=== PATIENT | female | born 1960 | race Caucasian/White ===

== ENCOUNTER → 2019-01-26 14:39 | Outpatient (CLI) | payer OTHER, SELFPAY ==
[2019-01-26 15:16] LABS: Add Manual Diff / Slide Review NO; Basophils Absolute Auto 100 /uL (0-100); Basophils Percent Auto 1.1 % (0-2); Eosinophils Absolute Auto 100 /uL (0-450); Eosinophils Percent Auto 1.2 % (2-4); Hematocrit 41.8 % (36-46); Hemoglobin 14.1 g/dL (12.0-16.0); Lymphocytes Absolute Auto 1700 /uL (1100-4500); Lymphocytes Percent Auto 28.3 % (25-40); Mean Corpuscular HGB Conc 33.8 % (30-36); Mean Corpuscular Hemoglobin 28.6 PG (26-34); Mean Corpuscular Volume 84.5 fL (80-100); Monocytes Absolute Auto 400 /uL (0-900); Monocytes Percent Auto 7.2 % (3-14); Neutrophils Absolute Auto 3800 /uL (1500-7000); Neutrophils Percent Auto 62.2 % (50-75); Platelet Count 402 X10^3/uL (150-400); Red Blood Cell Count 4.94 X10^6/uL (4.0-5.2); Red Cell Distribution Width 13.6 % (11.6-14.8); White Blood Cell Count 6.1 X10^3/uL (4.5-11.0)
[2019-01-26 16:08] LABS: Alanine Aminotransferase 21 IU/L (9-52); Albumin 4.5 g/dL (3.5-5.0); Albumin Globulin Ratio 1.5 (1.0-2.8); Alkaline Phosphatase 64 U/L (38-126); Aspartate Aminotransferase 20 IU/L (14-36); BUN Creatinine Ratio 18.3 (6-22); Bilirubin Total 0.5 mg/dL (0.2-1.3); Blood Urea Nitrogen 11 mg/dL (7-17); Calcium 9.8 mg/dL (8.4-10.2); Carbon Dioxide 28 mmol/L (22-32); Chloride 103 mmol/L (98-107); Cholesterol 244 mg/dL (140-199); Estimated Glomerular Filt Rate > 60.0 mL/min (>60); Glucose 94 mg/dL (70-100); HDL Cholesterol 100 mg/dL (40-60); HEMOLYSIS < 15 (0-50); LDL Cholesterol Calculated 117 mg/dL (<100); Magnesium 1.9 mg/dL (1.6-2.3); Sodium 139 mmol/L (137-145); Total Protein 7.5 g/dL (6.3-8.2); Triglycerides 137 mg/dL (35-150)
[2019-01-26 16:35] LABS: Thyroid Stimulating Hormone 2.35 uIU/mL (0.47-4.68)
[2019-01-26 16:37] LABS: Estradiol, Total 57.9 pg/mL
== END ==
PROVIDERS: PCP Acupuncturist; Visit Provider Acupuncturist
DX: Z00.00 Encounter for general adult medical examination without abnormal findings (principal)
CPT/HCPCS: 36415; 80053; 80061; 82670; 83735; 84443; 85025

== ENCOUNTER → 2020-09-07 07:49 | Outpatient (CLI) | payer OTHER, SELFPAY ==
[2020-09-07 08:43] LABS: Add Manual Diff / Slide Review NO; Basophils Absolute Auto 100 /uL (0-100); Eosinophils Absolute Auto 100 /uL (0-450); Hemoglobin 13.5 g/dL (12.0-16.0); Lymphocytes Absolute Auto 1500 /uL (1100-4500); Lymphocytes Percent Auto 29.6 % (25-40); Mean Corpuscular HGB Conc 33.9 % (30-36); Mean Corpuscular Hemoglobin 28.7 PG (26-34); Mean Corpuscular Volume 84.6 fL (80-100); Monocytes Absolute Auto 400 /uL (0-900); Monocytes Percent Auto 7.7 % (3-14); Neutrophils Absolute Auto 3100 /uL (1500-7000); Neutrophils Percent Auto 60.7 % (50-75); Platelet Count 422 X10^3/uL (150-400); Red Blood Cell Count 4.73 X10^6/uL (4.0-5.2); Red Cell Distribution Width 13.3 % (11.6-14.8); White Blood Cell Count 5.1 X10^3/uL (4.5-11.0)
[2020-09-07 09:27] LABS: Alanine Aminotransferase 29 IU/L (<35); Albumin 4.6 g/dL (3.5-5.0); Albumin Globulin Ratio 1.6 (1.0-2.8); Alkaline Phosphatase 62 U/L (38-126); Aspartate Aminotransferase 25 IU/L (14-36); Bilirubin Total 0.5 mg/dL (0.2-1.3); Blood Urea Nitrogen 14 mg/dL (7-17); Calcium 9.9 mg/dL (8.4-10.2); Carbon Dioxide 26 mmol/L (22-32); Chloride 101 mmol/L (98-107); Cholesterol 230 mg/dL (140-199); Estimated Glomerular Filt Rate > 60.0 mL/min (>60); Globulin 2.9 g/dL (1.7-4.1); Glucose 105 mg/dL (70-100); HDL Cholesterol 107 mg/dL (40-60); HEMOLYSIS < 15 (0-50); LDL Cholesterol Calculated 102 mg/dL (<100); Sodium 136 mmol/L (137-145); Total Protein 7.5 g/dL (6.3-8.2); Triglycerides 105 mg/dL (35-150)
[2020-09-07 09:40] LABS: Free T3, Triiodothyronine Free 3.87 pg/mL (2.77-5.27)
[2020-09-07 09:54] LABS: Thyroid Stimulating Hormone 4.01 uIU/mL (0.47-4.68)
[2020-09-07 10:00] LABS: Ferritin 100 ng/mL (11-264)
== END ==
PROVIDERS: PCP Acupuncturist; Referring Provider Acupuncturist; Visit Provider Acupuncturist
DX: Z00.00 Encounter for general adult medical examination without abnormal findings (principal)
CPT/HCPCS: 36415; 80053; 80061; 82728; 84443; 84481; 85025

== ENCOUNTER → 2020-11-17 07:04 | Outpatient (CLI) | payer OTHER, SELFPAY ==
[2020-11-17 08:46] LABS: Thyroid Stimulating Hormone 3.88 uIU/mL (0.47-4.68)
[2020-11-17 09:03] LABS: Folate 10.1 ng/mL (2.76-20.0); Vitamin B12 373 pg/mL (239-931)
== END ==
PROVIDERS: PCP Acupuncturist; Referring Provider Acupuncturist; Visit Provider Acupuncturist
DX: E03.9 Hypothyroidism, unspecified (principal)
CPT/HCPCS: 36415; 82607; 82746; 84443

== ENCOUNTER 2020-12-27 15:39 | Emergency (ER) | payer OTHER, SELFPAY ==
[2020-12-27 15:42] VITALS: BP 185/100; PULSE 95; RESP 20; TEMP 36.8; O2SAT 96
[2020-12-27 16:21] LABS: Add Manual Diff / Slide Review NO; Basophils Absolute Auto 100 /uL (0-100); Eosinophils Absolute Auto 100 /uL (0-450); Hematocrit 41.9 % (36-46); Hemoglobin 14.2 g/dL (12.0-16.0); Lymphocytes Absolute Auto 1600 /uL (1100-4500); Lymphocytes Percent Auto 22.3 % (25-40); Mean Corpuscular HGB Conc 33.9 % (30-36); Mean Corpuscular Hemoglobin 28.7 PG (26-34); Mean Corpuscular Volume 84.6 fL (80-100); Monocytes Absolute Auto 500 /uL (0-900); Monocytes Percent Auto 7.2 % (3-14); Neutrophils Absolute Auto 5000 /uL (1500-7000); Neutrophils Percent Auto 68.5 % (50-75); Platelet Count 421 X10^3/uL (150-400); Red Blood Cell Count 4.95 X10^6/uL (4.0-5.2); Red Cell Distribution Width 13.5 % (11.6-14.8); White Blood Cell Count 7.3 X10^3/uL (4.5-11.0)
[2020-12-27 16:33] LABS: Alanine Aminotransferase 23 IU/L (<35); Albumin 4.7 g/dL (3.5-5.0); Albumin Globulin Ratio 1.5 (1.0-2.8); Alkaline Phosphatase 73 U/L (38-126); Aspartate Aminotransferase 29 IU/L (14-36); Bilirubin Total 0.5 mg/dL (0.2-1.3); Blood Urea Nitrogen 14 mg/dL (7-17); Calcium 9.8 mg/dL (8.4-10.2); Carbon Dioxide 26 mmol/L (22-32); Chloride 105 mmol/L (98-107); Estimated Glomerular Filt Rate > 60.0 mL/min (>60); Globulin 3.2 g/dL (1.7-4.1); Glucose 136 mg/dL (80-110); HEMOLYSIS < 15 (0-50); Lipase 85 U/L (23-300); Potassium 3.5 mmol/L (3.4-5.1); Sodium 140 mmol/L (137-145); Total Protein 7.9 g/dL (6.3-8.2)
--- NOTE | 2020-12-27 17:08 | DI.CT.S_ITS ---
PROCEDURE: CT KIDNEY URETER BLADDER (KUB) INDICATIONS: LLQ and flank pain, hematuria TECHNIQUE: Axial sections were acquired from the lung bases to the pubic symphysis. Coronal and sagittal reformats were performed. For radiation dose reduction, the following was used: automated exposure control, adjustment of mA and/or kV according to patient size. COMPARISON: None. FINDINGS: Image quality: Excellent. Lung bases: Minimal bibasilar atelectasis. No pleural effusion.. Heart: No significant findings. URINARY: Right Kidney: No stones or hydronephrosis. Right Ureter: No hydroureter. Left Kidney: Calculus at the UPJ measuring 0.6 cm, (4/39). There may be trace stranding surrounding the UPJ/proximal ureter. The left renal collecting system is mildly dilated compared to the right. Inferior pole nonobstructing calculus measuring 0.2 cm. Left Ureter: No hydroureter. Bladder: Normal wall thickness. No stones. ABDOMEN: Liver: Unremarkable. Gallbladder: Multiple gallstones. No pericholecystic fluid seen. Biliary ducts: Unremarkable. Pancreas: Unremarkable. Spleen: Unremarkable. Adrenal Glands: Unremarkable. Stomach and Bowel: Stomach, small bowel loops, and colon are unremarkable. Diverticulosis. No diverticulitis. Peritoneum: No abnormal intraperitoneal fluid. No free air. Ventral Wall: Tiny fat containing periumbilical hernia. Abdominal Nodes: No enlarged retroperitoneal or mesenteric lymph nodes. Vessels: Aorta and inferior vena cava are normal in size. PELVIS: Pelvic Organs: Uterus is absent. Pelvic Nodes: Unremarkable. Miscellaneous: No inguinal hernias are seen. Bones: No compression fracture. Retrolisthesis of L5 on S1 measuring 0.6 cm. IMPRESSION: 1. Calculus at the left UPJ measuring 0.6 cm. Suspect trace fat stranding adjacent to the UPJ/proximal ureter. Left renal collecting system is mildly dilated compared to the right. This may indicate intermittent obstruction at the level of the left UPJ due to this stone. 2. No hydroureter. 3. Additional nonobstructing calculus in the left kidney. 4. Diverticulosis. 5. Cholelithiasis. Dictated by: Harrison Gutiérrez M.D. on 12/27/2020 at 17:26 Approved by: Harrison Gutiérrez M.D. on 12/27/2020 at 17:34
[2020-12-27] MEDS: ONDANSETRON 4 MG/2 ML INJ IV (17:30)
[2020-12-27] MEDS: SODIUM CHLORIDE 0.9% 1,000 ML 1000 ML IV (17:30)
[2020-12-27] MEDS: KETOROLAC 30 MG/ML VIAL 15 MG IV (17:30)
--- NOTE | 2020-12-27 17:35 | ED_ITS ---
HPI - Abdominal Pain <COLE Garcia - Last Filed: 12/27/20 20:05> General Chief Complaint: Abdominal Pain Stated Complaint: THINKS KIDNEY STONE, PAIN Time Seen by Provider: 12/27/20 16:29 Source: patient Mode of arrival: Ambulatory Limitations: no limitations History of Present Illness HPI narrative: This is a 60 year female, nonsmoker, has a remote history of kidney stone presents to ED with chief complain of intermittent duration of left flank and abdominal pain for about a month. She also noticed some swelling in her lower extremities. Patient initially noticed when she was visiting her daughter [place] and was evaluated in urgent care for UTI but urine culture was negative and there was no hematuria. Patient was advised to follow-up primary care physician when she returns to [place]. Patient does have an appointment with primary care physician Dr. Stover on 01/04/2021 but patient has been having severe pain since last night with nausea and some diarrhea. She reports could not sleep at all last night due to pain so she is here in ED for an evaluation. She was nauseated this morning and saw blood in her urine. Patient reports she was able to pass kidney stone on her own 4 years ago. Patient denies other urinary symptoms such as urgency, dysuria, or urinary frequency. Patient denies known exposure to COVID or has any COVID symptoms. She has returned to home 2-3 weeks ago. Patient denies chest pain, dyspnea. Related Data Previous Rx's Medication Instructions Recorded hydrocodone-acetaminophen 1 tab PO Q6H PRN #14 tab 12/27/20 ondansetron 4 mg PO Q6-8H PRN #7 tab 12/27/20 tamsulosin [Flomax] 0.4 mg PO BEDTIME #10 cap 12/27/20 Allergies Allergy/AdvReac Type Severity Reaction Status Date / Time No Known Drug Allergies Allergy Verified 12/27/20 15:44 Review of Systems <COLE Garcia - Last Filed: 12/27/20 20:05> Review of Systems Narrative: General: Denies fever, chills, fatigue, malaise, sweats. HEENT: Denies sinus pain, ear pain, sore throat, difficulty swallowing, dizziness. Respiratory: Denies dyspnea, cough, wheezing, hemoptysis, sputum. Cardiovascular: Denies chest pain, palpitations, orthopnea, edema. Gastrointestinal: See HPI : See HPI Musculoskeletal: Denies weakness, joint pain or bony pain. Skin: Denies rash, skin lesions, or other. Neurologic: Denies weakness, headache, numbness, change in speech, confusion, seizures, incoordination. Psychiatric: No concerning psychosocial issues. 12-point review of systems is negative except for those stated above. Patient History <COLE Garcia - Last Filed: 12/27/20 20:05> Medical History (Updated 12/27/20 @ 18:29 by COLE Garcia) Fibroids Kidney stone Social History Smoking Status: Never smoker Smoking Status: Never smoker alcohol intake frequency: 0-2 drinks per day Substance Use Type: does not use Exam <COLE Garcia - Last Filed: 12/27/20 20:05> Narrative Exam Narrative: GEN: Alert, oriented x 3, well appearing and nourished, and in no acute distress. Head: Normal cephalic, atraumatic. No scalp or temporal tenderness, palpable mass or rash. EYES: Pupils are equal, round, and reactive to light and accommodation. Extraocular muscles are intact bilaterally. There is no subconjunctival hemorrhage, exudate and sclera non-icteric. ENT: Hearing grossly intact. Nose without bleeding, purulent discharge or deviation. Mucous membrane moist, no mucosal lesion. Throat without erythema, tonsillar hypertrophy or exudate. Uvula in midline, airway patent. Neck: Trachea in midline. No JVD, non-tender without lymphadenopathy. No masses or thyroid megaly. Supple, non-tender and no meningeal signs. CARDIAC: Normal regular rate and rhythm without murmurs, gallops, or rubs. No chest wall tenderness. No peripheral edema, cyanosis or pallor. Capillary refill is less than 2 seconds. RESPIRATORY: Lungs are clear to auscultate bilaterally. No cough, wheezes, rales, or rhonchi. No stridor, respiratory distress, increase work of breathing, or accessary muscle used. ABD: Abdomen soft, nontender and non-distended. No guarding or rebound tenderness to palpate. Bowel sounds are normal in all 4 quadrants. There is no palpable masses or organomegaly. EXT: Full painless ROM of all extremities with no loss of sensation, strength, effusion or edema. SKIN: Warm, dry, normal color for patient. No erythema, lesions or rash over visible areas. BACK: Nontender without deformity or crepitance. No flank tenderness. NEUROLOGICAL: Alert and oriented to place, time and person. Sensation and motor function intact bilaterally. No facial droops, dysphasia. PSYCHIATRIC: Good judgement and reason, without hallucinations, abnormal affect or abnormal behaviors during the examination. Patient is not suicidal. Initial Vital Signs Initial Vital Signs: Vital Signs Temperature 98.2 F 12/27/20 15:42 Pulse Rate 95 H 12/27/20 15:42 Respiratory Rate 20 12/27/20 15:42 Blood Pressure 185/100 H 12/27/20 15:42 Pulse Oximetry 96 12/27/20 15:42 <Sabiha Lemus DO - Last Filed: 12/28/20 18:19> Initial Vital Signs Initial Vital Signs: Vital Signs Temperature 98.2 F 12/27/20 15:42 Pulse Rate 95 H 12/27/20 15:42 Respiratory Rate 20 12/27/20 15:42 Blood Pressure 185/100 H 12/27/20 15:42 Pulse Oximetry 96 12/27/20 15:42 Scores <COLE Garcia - Last Filed: 12/27/20 20:05> GCS [place] coma scale eye opening: Spontaneous Matti coma scale verbal response: Orientated [place] coma scale motor response: Obey commands Matti coma scale total score: 15 Course <COLE Garcia - Last Filed: 12/27/20 20:05> Orders Ordered: Discontinued Medications Sodium Chloride (Normal Saline 0.9%) 1,000 mls @ 1,000 mls/hr IV BOLUS PRN PRN Reason: Fluid replacement Last Admin: 12/27/20 17:30 Dose: 1,000 mls/hr Documented by: TAYE Ketorolac Tromethamine (Ketorolac 30 Mg/Ml Vial) 15 mg IV NOW ONE Stop: 12/27/20 17:09 Last Admin: 12/27/20 17:30 Dose: 15 mg Documented by: TAYE Ondansetron HCl (Ondansetron 4 Mg/2 Ml Inj) 4 mg IV NOW ONE Stop: 12/27/20 17:09 Last Admin: 12/27/20 17:30 Dose: 4 mg Documented by: TAYE Sodium Chloride (Sodium Chloride 0.9% 100 Ml) 250 ml IV NOW ONE Stop: 12/27/20 17:09 Last Admin: 12/27/20 17:45 Dose: Not Given Documented by: TAYE Vital Signs Vital signs: Vital Signs - 8 hr 12/27/20 15:42 Temperature 98.2 F Pulse Rate 95 H Respiratory Rate 20 Blood Pressure 185/100 H Pulse Oximetry 96 <Sabiha Lemus DO - Last Filed: 12/28/20 18:19> Orders Ordered: Discontinued Medications Sodium Chloride (Normal Saline 0.9%) 1,000 mls @ 1,000 mls/hr IV BOLUS PRN PRN Reason: Fluid replacement Last Admin: 12/27/20 17:30 Dose: 1,000 mls/hr Documented by: TAYE Ketorolac Tromethamine (Ketorolac 30 Mg/Ml Vial) 15 mg IV NOW ONE Stop: 12/27/20 17:09 Last Admin: 12/27/20 17:30 Dose: 15 mg Documented by: TAYE Ondansetron HCl (Ondansetron 4 Mg/2 Ml Inj) 4 mg IV NOW ONE Stop: 12/27/20 17:09 Last Admin: 12/27/20 17:30 Dose: 4 mg Documented by: TAYE Sodium Chloride (Sodium Chloride 0.9% 100 Ml) 250 ml IV NOW ONE Stop: 12/27/20 17:09 Last Admin: 12/27/20 17:45 Dose: Not Given Documented by: TAYE Vital Signs Vital signs: Vital Signs - 8 hr 12/27/20 15:42 Temperature 98.2 F Pulse Rate 95 H Respiratory Rate 20 Blood Pressure 185/100 H Pulse Oximetry 96 MDM - Abdominal Pain <COLE Garcia - Last Filed: 12/27/20 20:05> Differential Diagnosis Differential diagnosis: Likely abdominal pain, calculus of kidney, di verticulitis and small bowel obstruction Medical Records Attestation: I reviewed the patient's medical records. Lab Data Attestation: I reviewed the patient's lab results. Result diagrams: 12/27/20 16:06 12/27/20 16:06 Labs: Lab Results 12/27/20 12/27/20 12/27/20 Range/Units 16:06 16:06 16:07 WBC 7.3 (4.5-11.0) X10^3/uL RBC 4.95 (4.0-5.2) X10^6/uL Hgb 14.2 (12.0-16.0) g/dL Hct 41.9 (36-46) % MCV 84.6 (80-100) fL MCH 28.7 (26-34) PG MCHC 33.9 (30-36) % RDW 13.5 (11.6-14.8) % Plt Count 421 H (150-400) X10^3/uL Neut % (Auto) 68.5 (50-75) % Lymph % (Auto) 22.3 L (25-40) % [place] % (Auto) 7.2 (3-14) % Eos % (Auto) 1.0 L (2-4) % Baso % (Auto) 1.0 (0-2) % Neut # (Auto) 5000 (7741-0859) /uL Lymph # (Auto) 1600 (4141-0315) /uL [place] # (Auto) 500 (0-900) /uL Eos # (Auto) 100 (0-450) /uL Baso # (Auto) 100 (0-100) /uL Sodium 140 (137-145) mmol/L Potassium 3.5 (3.4-5.1) mmol/L Chloride 105 (98-107) mmol/L Carbon Dioxide 26 (22-32) mmol/L BUN 14 (7-17) mg/dL Creatinine 0.56 (0.52-1.04) mg/dL Estimated GFR > 60.0 (>60) mL/min BUN/Creatinine Ratio 25.0 H (6-22) Glucose 136 H (80-110) mg/dL Calcium 9.8 (8.4-10.2) mg/dL Total Bilirubin 0.5 (0.2-1.3) mg/dL AST 29 (14-36) IU/L ALT 23 (<35) IU/L Alkaline Phosphatase 73 (38-126) U/L Total Protein 7.9 (6.3-8.2) g/dL Albumin 4.7 (3.5-5.0) g/dL Globulin 3.2 (1.7-4.1) g/dL Albumin/Globulin Ratio 1.5 (1.0-2.8) Lipase 85 (23-300) U/L Urine RBC >100/hpf H (0-5/HPF) Urine WBC None seen (0-5/HPF) Ur Squamous Epith Cells None seen (0-5/HPF) Urine Bacteria None seen (None) Ur Culture Indicated? Specimen cultured Point of care testing: Urine Dip Bedside Urine Glucose Negative Bedside Urine Bilirubin - Negative Bedside Urine Ketone - Negative Urine Specific [place] 1.030 Bedside Urine Occult Blood +++ Bedside Urine pH 6 Bedside Urine Protein + 30 Bedside Urine Urobilinogen - Negative Bedside Urine Nitrite - Negative Bedside Urine Leukocytes + [address]-KUB: Radiologist's Impression: [address] [id number] Scan ReportSigned Patient: Carmen Flynn JMR#: [id number]: 1Acct:[id number]/Sex: 60 / FDate of Service: 12/27/20Loc: EDAccession Number: [id number] Procedure: CT kidney ureter bladder (KUB) Ordering Provider: Rob Palacios PROCEDURE: CT KIDNEY URETER BLADDER (KUB) INDICATIONS: LLQ and flank pain, hematuria TECHNIQUE: Axial sections were acquired from the lung bases to the pubic symphysis. Coronal and sagittal reformats were performed. For radiation dose reduction, the following was used: automated exposure control, adjustment of mA and/or kV according to patient size. COMPARISON: None. FINDINGS: Image quality: Excellent. Lung bases: Minimal bibasilar atelectasis. No pleural effusion.. Heart: No significant findings. URINARY: Right Kidney: No stones or hydronephrosis. Right Ureter: No hydroureter. Left Kidney: Calculus at the UPJ measuring 0.6 cm, (4/39). There may be trace stranding surrounding the UPJ/proximal ureter. The left renal collecting system is mildly dilated compared to the right. Inferior pole nonobstructing calculus measuring 0.2 cm. Left Ureter: No hydroureter. Bladder: Normal wall thickness. No stones. ABDOMEN: Liver: Unremarkable. Gallbladder: Multiple gallstones. No pericholecystic fluid seen. Biliary ducts: Unremarkable. Pancreas: Unremarkable. Spleen: Unremarkable. Adrenal Glands: Unremarkable. Stomach and Bowel: Stomach, small bowel loops, and colon are unremarkable. Diverticulosis. No diverticulitis. Peritoneum: No abnormal intraperitoneal fluid. No free air. Ventral Wall: Tiny fat containing periumbilical hernia. Abdominal Nodes: No enlarged retroperitoneal or mesenteric lymph nodes. Vessels: Aorta and inferior vena cava are normal in size. PELVIS: Pelvic Organs: Uterus is absent. Pelvic Nodes: Unremarkable. Miscellaneous: No inguinal hernias are seen. Bones: No compression fracture. Retrolisthesis of L5 on S1 measuring 0.6 cm. IMPRESSION: 1. Calculus at the left UPJ measuring 0.6 cm. Suspect trace fat stranding adjacent to the UPJ/proximal ureter. Left renal collecting system is mildly dilated compared to the right. This may indicate intermittent obstruction at the level of the left UPJ due to this stone. 2. No hydroureter. 3. Additional nonobstructing calculus in the left kidney. 4. Diverticulosis. 5. Cholelithiasis. Dictated by: Harrison Gutiérrez M.D. on 12/27/2020 at 17:26 Approved by: Harrison Gutiérrez M.D. on 12/27/2020 at 17:34 [facility] Narrative Medical decision making narrative: This is a 60-year-old female who presents to ED with intermittent discomfort in left flank and left abdomen for a month. Patient was also concern for bilateral leg swelling after she traveled to and back from [place] driving. Patient denies chest pain, short of breath, or calf pain, redness, warmth to lower extremities. Urine test shows +++ blood and +70 Leuks. Micro urine test results show no WBC or bacteria and culture is pending. Patient denies constitutional symptoms and she is afebrile in ED. WBC shows no leukocytosis. Increased BUN/creatinine ratio but normal GFR and creatinine level indicating normal kidney function. Patient's physical exam is not consistent with DVT. Bilateral lower leg swelling likely due to pendant edema. No cardiac related symptoms with lower leg swelling. Patient had once kidney stone 4 years ago which she was able to pass without surgical interventions. KUB CT test was done to evaluate obstructive kidney stone. CT test indicates 0.6 cm stone in UPJ with trace stranding surrounding UPJ/proximal ureter. There is another small stone measuring 0.2 cm in left inferior pole non obstructing. Patient found to be with pain treatment from Toradol, Zofran and IVF. Patient is discharged to home with Flomax, [place] and Zofran advised to use [id number] Tylenol and or Motrin as needed for bases pain management. Patient advised to follow-up with Dr. Granda and strict return precautions discussed. Patient verbalized understanding and agreement with the treatment plan. <Sabiha Lemus, DO - Last Filed: 12/28/20 18:19> Lab Data Labs: Lab Results 12/27/20 12/27/20 12/27/20 Range/Units 16:06 16:06 16:07 WBC 7.3 (4.5-11.0) X10^3/uL RBC 4.95 (4.0-5.2) X10^6/uL Hgb 14.2 (12.0-16.0) g/dL Hct 41.9 (36-46) % MCV 84.6 (80-100) fL MCH 28.7 (26-34) PG MCHC 33.9 (30-36) % RDW 13.5 (11.6-14.8) % Plt Count 421 H (150-400) X10^3/uL Neut % (Auto) 68.5 (50-75) % Lymph % (Auto) 22.3 L (25-40) % [place] % (Auto) 7.2 (3-14) % Eos % (Auto) 1.0 L (2-4) % Baso % (Auto) 1.0 (0-2) % Neut # (Auto) 5000 (4571-9562) /uL Lymph # (Auto) 1600 (4518-2363) /uL [place] # (Auto) 500 (0-900) /uL Eos # (Auto) 100 (0-450) /uL Baso # (Auto) 100 (0-100) /uL Sodium 140 (137-145) mmol/L Potassium 3.5 (3.4-5.1) mmol/L Chloride 105 (98-107) mmol/L Carbon Dioxide 26 (22-32) mmol/L BUN 14 (7-17) mg/dL Creatinine 0.56 (0.52-1.04) mg/dL Estimated GFR > 60.0 (>60) mL/min BUN/Creatinine Ratio 25.0 H (6-22) Glucose 136 H (80-110) mg/dL Calcium 9.8 (8.4-10.2) mg/dL Total Bilirubin 0.5 (0.2-1.3) mg/dL AST 29 (14-36) IU/L ALT 23 (<35) IU/L Alkaline Phosphatase 73 (38-126) U/L Total Protein 7.9 (6.3-8.2) g/dL Albumin 4.7 (3.5-5.0) g/dL Globulin 3.2 (1.7-4.1) g/dL Albumin/Globulin Ratio 1.5 (1.0-2.8) Lipase 85 (23-300) U/L Urine RBC >100/hpf H (0-5/HPF) Urine WBC None seen (0-5/HPF) Ur Squamous Epith Cells None seen (0-5/HPF) Urine Bacteria None seen (None) Ur Culture Indicated? Specimen cultured Point of care testing: Urine Dip Bedside Urine Glucose Negative Bedside Urine Bilirubin - Negative Bedside Urine Ketone - Negative Urine Specific [place] 1.030 Bedside Urine Occult Blood +++ Bedside Urine pH 6 Bedside Urine Protein + 30 Bedside Urine Urobilinogen - Negative Bedside Urine Nitrite - Negative Bedside Urine Leukocytes + 70 Esterase Discharge Plan Departure Patient Disposition: Home Clinical Impression: Left ureteral calculus Instructions: DI for Kidney Stones Activity Restrictions/Additional Instructions: You have been diagnosed with [ureter stone on left side. One stone measuring 6 mm at the UVJ and 2mm stone in inferior pole non-obstructing. ]. What to do: *Take your medications as directed. Please start Flomax tonight and daily thereafter. You can use Zofran as needed for nausea or vomiting. Take OTC Motrin and Tylenol as needed for pain and for severe pain, take [place]. [place] is narcotic pain medications any can cause drowsiness please do not drive, drink alcohol, or operate heavy equipments. Ibuprofen 600 mg to 3 times a day as needed. Tylenol 650mg up to 3 times a day as needed for pain. This medication have been transmitted to [facility] in [facility]. *Follow up with your primary care provider/urologist Dr. Granda in 2-3 days, call for an appointment. Let them know you were seen in the ED and that we asked you to be seen in follow up. Urine culture is pending to evaluate the infection. Incidental findings of diverticulosis and cholelithiasis (gallstones without infection). *Return to ED if you have any new, worsening, or concerning symptoms, such as [worsening pain, fever, unable to tolerate fluids, chest pain, breathing difficulty, unable to void, or any acute concerns]. Prescriptions: New hydrocodone-acetaminophen 5-325 mg tablet 1 tab PO Q6H PRN (Reason: pain) Qty: 14 RF: 0 ondansetron 4 mg tablet,disintegrating 4 mg PO Q6-8H PRN (Reason: nausea and vomiting) Qty: 7 RF: 0 tamsulosin [Flomax] 0.4 mg capsule 0.4 mg PO BEDTIME Qty: 10 RF: 0 Referrals: Jd Granda MD [Physician] - Laila López ND [Primary Care Provider] - <Sabiha Lemus DO - Last Filed: 12/28/20 18:19> Sign Out Provider Sign Out Attestation: I was immediately available in the department for consultation. Documentation has been reviewed. I agree with assessment and plan.
[2020-12-27 18:31] LABS: Bacteria Urine None Seen; WBC Urine None Seen (0-5/HPF)
[2020-12-27 18:43] LABS: Culture Indicated Urine Specimen Cultured; RBC Urine >100/HPF (0-5/HPF); Squamous Epithelial Cell Urine None Seen (0-5/HPF)
[2020-12-27 20:30] VITALS: BP 144/91; PULSE 79; RESP 20; O2SAT 97
--- NOTE | 2021-01-27 09:08 | PC.NURSE ---
Late Entry NS finished 1000ml @ approx 1830
== END 2020-12-27 20:30 | disposition home or self-care (01) ==
PROVIDERS: Emergency Medicine; Emergency Provider Nurse Practitioner Family; PCP Acupuncturist
DX: N20.1 Calculus of ureter (principal); R31.9 Hematuria, unspecified
CPT/HCPCS: 74176; 80053; 81003; 81015; 83690; 85025; 87086; 96361; 96374; 96375; 99284; J1885; J2405

== ENCOUNTER → 2021-01-11 15:23 | Outpatient (CLI) | payer OTHER, SELFPAY | PROVIDERS: PCP Acupuncturist; Visit Provider Urology | DX: N20.0 Calculus of kidney (principal); R82.81 Pyuria; R31.0 Gross hematuria | CPT/HCPCS: 81002; 87086 ==

== ENCOUNTER → 2021-02-23 09:02 | Outpatient (CLI) | payer OTHER, SELFPAY ==
--- NOTE | 2021-02-23 09:03 | DI.RAD.S_ITS ---
PROCEDURE: XR KUB INDICATIONS: Kidney stone TECHNIQUE: One view of the abdomen acquired. COMPARISON: [facility], CT, CT KIDNEY URETER BLADDER (KUB), 12/27/2020, 17:18. FINDINGS: Surgical changes and devices: None. Bowel: Bowel gas pattern is normal. Moderate amount of stool in colon. Soft tissues: A couple of calcified stones in the inferior pole of the left kidney measuring 5 mm and 2 mm. Visualized solid organ contours appear normal in size. Bones: No suspicious bony lesions. Degenerative disc and facet disease at L4-L5. IMPRESSION: A couple of left renal calculi. Dictated by: Aiden Kline M.D. on 02/23/2021 at 11:16 Approved by: Aiden Kline M.D. on 02/23/2021 at 11:19
== END ==
PROVIDERS: PCP Acupuncturist; Referring Provider Urology; Visit Provider Urology
DX: N20.0 Calculus of kidney (principal); N39.0 Urinary tract infection, site not specified; R31.0 Gross hematuria; Z71.89 Other specified counseling
CPT/HCPCS: 74018; 81002; 87086

== ENCOUNTER → 2021-02-23 10:03 | Outpatient (CLI) | payer OTHER, SELFPAY | PROVIDERS: PCP Acupuncturist; Visit Provider Urology | DX: N39.0 Urinary tract infection, site not specified (principal) | CPT/HCPCS: 87086 ==

== ENCOUNTER → 2021-04-18 15:38 | Outpatient (CLI) | payer OTHER, SELFPAY ==
--- NOTE | 2021-04-18 15:43 | DI.RAD.S_ITS ---
PROCEDURE: XR KUB INDICATIONS: Kidney stone TECHNIQUE: One view of the abdomen acquired. COMPARISON: [facility], , XR KUB, 02/23/2021, 9:25. FINDINGS: Surgical changes and devices: None. Bowel: Bowel gas pattern is normal. Soft tissues: Redemonstrated left nephrolithiasis. Calcifications overlie the pelvis, which may reflect phleboliths. Visualized solid organ contours appear normal in size. Bones: No suspicious bony lesions. IMPRESSION: Redemonstrated left nephrolithiasis. Dictated by: Alfred Ralph M.D. on 04/18/2021 at 17:11 Approved by: Alfred Ralph M.D. on 04/18/2021 at 17:12
== END ==
PROVIDERS: PCP Acupuncturist; Referring Provider Urology; Visit Provider Urology
DX: N20.0 Calculus of kidney (principal)
CPT/HCPCS: 74018

== ENCOUNTER → 2021-10-17 16:27 | Outpatient (CLI) | payer OTHER, SELFPAY ==
--- NOTE | 2021-10-17 16:31 | DI.RAD.S_ITS ---
PROCEDURE: XR KUB INDICATIONS: Left lower pole calculus TECHNIQUE: One view of the abdomen acquired. COMPARISON: [facility], CT, CT KIDNEY URETER BLADDER (KUB), 12/27/2020, 17:18. [facility], CR, XR KUB, 04/18/2021, 15:49. FINDINGS: Surgical changes and devices: None. Bowel: Mild amount of stool within the right and left colon; otherwise normal bowel gas pattern is normal. Soft tissues: No suspicious abdominal calcifications. Visualized solid organ contours appear normal in size. Bones: No suspicious bony lesions. IMPRESSION: Mild fecal loading. Dictated by: Vinnie Carr RRA Interpreted: Alfred Ralph MD on 10/17/2021 at 17:11 Transcribed by: JULIO on 10/17/2021 at 17:11 Approved by: Alfred Raplh M.D. on 10/26/2021 at 13:07
== END ==
PROVIDERS: PCP Acupuncturist; Referring Provider Urology; Visit Provider Urology
DX: N20.0 Calculus of kidney (principal)
CPT/HCPCS: 74018

== ENCOUNTER → 2022-01-03 12:03 | Outpatient (CLI) | payer OTHER, SELFPAY ==
[2022-01-03 12:54] LABS: Add Manual Diff / Slide Review NO; Basophils Absolute Auto 100 /uL (0-100); Basophils Percent Auto 1.3 % (0-2); Eosinophils Absolute Auto 0 /uL (0-450); Eosinophils Percent Auto 0.6 % (2-4); Hemoglobin 14.2 g/dL (12.0-16.0); Lymphocytes Absolute Auto 1500 /uL (1100-4500); Lymphocytes Percent Auto 29.6 % (25-40); Mean Corpuscular HGB Conc 34.7 % (30-36); Mean Corpuscular Hemoglobin 29.3 PG (26-34); Mean Corpuscular Volume 84.5 fL (80-100); Monocytes Absolute Auto 400 /uL (0-900); Monocytes Percent Auto 7.5 % (3-14); Neutrophils Absolute Auto 3100 /uL (1500-7000); Platelet Count 414 X10^3/uL (150-400); Red Blood Cell Count 4.85 X10^6/uL (4.0-5.2); Red Cell Distribution Width 13.3 % (11.6-14.8); White Blood Cell Count 5.2 X10^3/uL (4.5-11.0)
[2022-01-03 13:08] LABS: Alanine Aminotransferase 32 IU/L (<35); Albumin 5.1 g/dL (3.5-5.0); Albumin Globulin Ratio 1.6 (1.0-2.8); Alkaline Phosphatase 58 U/L (38-126); Aspartate Aminotransferase 28 IU/L (14-36); BUN Creatinine Ratio 16.2 (6-22); Bilirubin Total 0.6 mg/dL (0.2-1.3); Blood Urea Nitrogen 12 mg/dL (7-17); Calcium 9.8 mg/dL (8.4-10.2); Carbon Dioxide 28 mmol/L (22-32); Chloride 102 mmol/L (98-107); Cholesterol 263 mg/dL (140-199); Estimated Glomerular Filt Rate > 60 mL/min (>60); Globulin 3.2 g/dL (1.7-4.1); Glucose 98 mg/dL (80-110); HDL Cholesterol 94 mg/dL (40-60); LDL Cholesterol Calculated 148 mg/dL (<100); Potassium 3.9 mmol/L (3.4-5.1); Sodium 137 mmol/L (137-145); Total Protein 8.3 g/dL (6.3-8.2); Triglycerides 107 mg/dL (35-150)
[2022-01-03 13:09] LABS: HEMOLYSIS < 15 (0-50)
[2022-01-03 13:23] LABS: Free T3, Triiodothyronine Free 3.75 pg/mL (2.77-5.27)
[2022-01-03 13:37] LABS: Thyroid Stimulating Hormone 2.16 uIU/mL (0.47-4.68)
[2022-01-03 14:02] LABS: Vitamin B12 376 pg/mL (239-931)
== END ==
PROVIDERS: PCP Acupuncturist; Referring Provider Acupuncturist; Visit Provider Acupuncturist
DX: Z00.00 Encounter for general adult medical examination without abnormal findings (principal)
CPT/HCPCS: 36415; 80053; 80061; 82607; 84443; 84481; 85025

== ENCOUNTER → 2022-04-17 15:56 | Outpatient (CLI) | payer OTHER, SELFPAY ==
--- NOTE | 2022-04-17 15:57 | DI.RAD.S_ITS ---
PROCEDURE: XR KUB INDICATIONS: kidney stones TECHNIQUE: One view of the abdomen acquired. COMPARISON: [facility], CR, XR KUB, 10/17/2021, 16:20. FINDINGS: Surgical changes and devices: None. Bowel: Bowel gas pattern is nonobstructive. No gross pneumoperitoneum. Mild fecal stasis throughout the colon is seen. Soft tissues: 9 mm calcification is seen projecting in the region of left renal fossa. This is unchanged from previous study. No new abnormal calcifications are seen. Visualized solid organ contours appear normal in size. Bones: No suspicious bony lesions. IMPRESSION: Stable appearing left renal calculus unchanged from prior study. Dictated by: Murphy Russell M.D. on 04/18/2022 at 8:00 Approved by: Murphy Russell M.D. on 04/18/2022 at 8:01
== END ==
PROVIDERS: PCP Acupuncturist; Referring Provider Urology; Visit Provider Urology
DX: N20.0 Calculus of kidney (principal)
CPT/HCPCS: 74018

== ENCOUNTER → 2023-01-22 12:35 | Outpatient (CLI) | payer OTHER, SELFPAY ==
--- NOTE | 2023-01-22 12:37 | DI.RAD.S_ITS ---
PROCEDURE: XR KUB INDICATIONS: Kidney stones TECHNIQUE: One view of the abdomen acquired. COMPARISON: [facility], CR, XR KUB, 04/17/2022, 15:59. FINDINGS: Surgical changes and devices: None. Bowel: Bowel gas pattern is normal. Soft tissues: No suspicious abdominal calcifications. Visualized solid organ contours appear normal in size. Again noted is a 9 mm stone of the lower pole of the left kidney. Bones: No suspicious bony lesions. IMPRESSION: Unchanged lower pole stone, left kidney. Dictated by: Joe Gibbs M.D. on 01/22/2023 at 18:35 Approved by: Joe Gibbs M.D. on 01/22/2023 at 18:36
== END ==
PROVIDERS: PCP Acupuncturist; Referring Provider Urology; Visit Provider Urology
DX: N20.0 Calculus of kidney (principal)
CPT/HCPCS: 74018

== ENCOUNTER → 2023-05-28 12:36 | Outpatient (CLI) | payer OTHER, SELFPAY ==
[2023-05-28 13:27] LABS: Appearance Urine UA CLEAR; Bilirubin Urine UA NEGATIVE (NEGATIVE); Color Urine UA YELLOW; Glucose Urine UA NEGATIVE (Negative); Ketones Urine UA NEGATIVE (NEGATIVE); Leukocyte Esterase Urine UA NEGATIVE (NEGATIVE); Nitrite Urine UA NEGATIVE (Negative); Occult Blood Urine UA NEGATIVE (Negative); Protein Urine UA NEGATIVE (Negative); Urobilinogen Urine UA 0.2 E.U./dL (0.2)
[2023-05-28 13:46] LABS: Bacteria Urine None Seen; Culture Indicated Urine Cult Not Indicated; RBC Urine None Seen (0-5/HPF); Squamous Epithelial Cell Urine None Seen (0-5/HPF); WBC Urine None Seen (0-5/HPF)
== END ==
PROVIDERS: PCP Acupuncturist; Referring Provider Urology; Visit Provider Urology
DX: N20.0 Calculus of kidney (principal)
CPT/HCPCS: 81001

== ENCOUNTER → 2023-07-25 10:41 | Outpatient (CLI) | payer OTHER, SELFPAY ==
--- NOTE | 2023-07-25 10:46 | DI.RAD.S_ITS ---
PROCEDURE: XR ABDOMEN 1V INDICATIONS: NEPHROLITHIASIS TECHNIQUE: One view of the abdomen acquired. COMPARISON: [facility], CR, XR KUB, 01/22/2023, 12:40. FINDINGS: Surgical changes and devices: None. Bowel: Bowel gas pattern is normal. Soft tissues: Patient's known 9 mm stone in lower pole left kidney is not definitively seen on the current study. No new renal calcifications are seen. Visualized solid organ contours appear normal in size. Bones: No suspicious bony lesions. IMPRESSION: Patient's known 9 mm lower pole left renal calculus is not definitively seen on this study. No other abdominal calcifications are seen. No bowel obstruction or gross free air. Dictated by: Murphy Russell M.D. on 07/25/2023 at 13:21 Approved by: Murphy Russell M.D. on 07/25/2023 at 13:23
== END ==
LOC: RAD 10:45
PROVIDERS: PCP Acupuncturist; Referring Provider Urology; Visit Provider Urology
DX: N20.0 Calculus of kidney (principal)
CPT/HCPCS: 74018